=== PATIENT | male | born 1970 | race Caucasian/White ===

== ENCOUNTER 2022-03-26 17:25 | Emergency (ER) | payer SELFPAY ==
[~2022-03-26] VITALS: Ht 170.2 cm; Wt 82.0 kg
[2022-03-26 17:33] VITALS: BP 154/80
== END 2022-03-26 20:36 | disposition left against medical advice (07) ==
LOC: ER 17:25
DX: Z53.21 Procedure and treatment not carried out due to patient leaving prior to being seen by health care provider (principal); I49.9 Cardiac arrhythmia, unspecified
CPT/HCPCS: 93005